=== PATIENT | female | born 1995 | race Two or more races ===

== ENCOUNTER → 2020-01-13 | Outpatient (CLI) | payer OTHER ==
[~2020-01-13] MED LIST: ACETAMINOPHEN500 M1 PO; DERMOPLAST PAIN78 GM PERCUT; PRENATAL 19 TA1 EAC1 PO; PREPLUS CA-FE1 EACH PO
== END | disposition home or self-care (01) ==
LOC: PRENATAL 14:56
DX: O35.3XX0 Maternal care for (suspected) damage to fetus from viral disease in mother, not applicable or unspecified (principal); Z36.89 Encounter for other specified antenatal screening

== ENCOUNTER 2020-03-29 15:43 | Inpatient (IN) | payer OTHER ==
[~2020-03-29] VITALS: Ht 160 cm; Wt 52.6 kg
== END 2020-04-01 14:29 | DRG 807 ==
LOC: OB/GYN 03-30 09:29 → LDR 03-30 09:29 → OB/GYN 03-30 11:37
PROVIDERS: ADMIT Obstetrics & Gynecology; ATTEND Obstetrics & Gynecology
PROC: 10E0XZZ Delivery of Products of Conception, External Approach (ICD-10-PCS; principal; 2020-03-30)
PROC: 4A0HXFZ Measurement of Products of Conception, Cardiac Rhythm, External Approach (ICD-10-PCS; 2020-03-30)
DX: O80 Encounter for full-term uncomplicated delivery (principal); Z37.0 Single live birth; Z3A.37 37 weeks gestation of pregnancy; Z20.828 Contact with and (suspected) exposure to other viral communicable diseases

== ENCOUNTER → 2021-09-08 | Outpatient (CLI) | payer OTHER | END | disposition home or self-care (01) | LOC: PRENATAL 16:00 | PROVIDERS: ATTEND Obstetrics & Gynecology Maternal & Fetal Medicine | DX: O35.0XX1 Maternal care for (suspected) central nervous system malformation in fetus, fetus 1 (principal); O35.3XX1 Maternal care for (suspected) damage to fetus from viral disease in mother, fetus 1; O98.512 Other viral diseases complicating pregnancy, second trimester; Z36.89 Encounter for other specified antenatal screening; Z3A.25 25 weeks gestation of pregnancy ==

== ENCOUNTER 2021-10-27 15:38 | Outpatient (CLI) | payer OTHER | END 2021-10-27 17:15 | disposition home or self-care (01) | LOC: PRENATAL 15:38 | PROVIDERS: ATTEND Obstetrics & Gynecology Maternal & Fetal Medicine | DX: O09.529 Supervision of elderly multigravida, unspecified trimester (principal); O36.8199 Decreased fetal movements, unspecified trimester, other fetus; O35.0XX0 Maternal care for (suspected) central nervous system malformation in fetus, not applicable or unspecified; O26.849 Uterine size-date discrepancy, unspecified trimester ==

== ENCOUNTER 2021-11-25 14:29 | Outpatient (CLI) | payer OTHER | END 2021-11-25 15:30 | disposition home or self-care (01) | LOC: PRENATAL 14:29 | PROVIDERS: ATTEND Obstetrics & Gynecology Maternal & Fetal Medicine | DX: O35.3XX0 Maternal care for (suspected) damage to fetus from viral disease in mother, not applicable or unspecified (principal) ==

== ENCOUNTER 2021-12-07 13:15 | Inpatient (IN) | payer OTHER ==
[~2021-12-07] VITALS: Ht 160 cm; Wt 55.3 kg
[2021-12-11] MEDS ORDERED: PRENATAL TABLE1 EAC3 PO (06:00)
== END 2021-12-13 14:34 | disposition home or self-care (01) | DRG 807 ==
LOC: OB/GYN 12-11 05:52 → LDR 12-11 05:52 → OB/GYN 12-11 07:50 → LDR 12-18 14:45
PROVIDERS: ADMIT Obstetrics & Gynecology; ATTEND Obstetrics & Gynecology
PROC: 10E0XZZ Delivery of Products of Conception, External Approach (ICD-10-PCS; principal; 2021-12-11)
PROC: 4A1HXCZ Monitoring of Products of Conception, Cardiac Rate, External Approach (ICD-10-PCS; 2021-12-11)
DX: O80 Encounter for full-term uncomplicated delivery (principal); Z37.0 Single live birth; Z3A.39 39 weeks gestation of pregnancy; Z20.822 Contact with and (suspected) exposure to COVID-19

== ENCOUNTER 2025-07-09 21:06 | Emergency (ER) | payer OTHER ==
[~2025-07-09] VITALS: Ht 157.5 cm; Wt 44.5 kg
[~2025-07-09 21:06] MED LIST changes: +PRENATAL TABLE1 EAC3 PO
[2025-07-09 22:44] VITALS: BP 133/83; O2SAT 100
[2025-07-10] MEDS ORDERED: KETOROLAC TROMETHAMINE 60 MG VIAL IM STA (00:08)
[2025-07-10] MEDS ORDERED: ORPHENADRINE CITRATE 30 MG/ML AMPUL IM STA (00:08)
[2025-07-10] MEDS ORDERED: KETO10TA2 PO (00:31)
[2025-07-10] MEDS ORDERED: NORFLEX100MG PO (00:31)
== END 2025-07-10 01:07 ==
LOC: ER 21:07
DX: S29.011A Strain of muscle and tendon of front wall of thorax, initial encounter (principal); M62.838 Other muscle spasm